=== PATIENT | female | born 1970 | race Caucasian/White ===

== ENCOUNTER 2018-12-01 14:26 | Inpatient (IN) | payer MEDICARE, MEDICAID ==
[~2018-12-01] VITALS: Ht 154.9 cm; Wt 111.1 kg
[2018-12-01] MEDS ORDERED: DIAZ10 PO (15:07)
[2018-12-01] MEDS ORDERED: ADV250 IH (15:07)
[2018-12-01] MEDS ORDERED: OMAL75SY SQ (15:07)
[2018-12-01] MEDS ORDERED: TIZA4TAB4 PO (15:07)
[2018-12-01] MEDS ORDERED: GABA-531 PO (15:07)
[2018-12-01] MEDS ORDERED: GABA-533 PO (15:07)
[2018-12-01] MEDS ORDERED: LEVO125 PO (15:15)
[2018-12-01 15:36] LABS: BASOPHILS % (AUTO) 0.7 % (0.0-2.0); EOSINOPHILS % (AUTO) 2.1 % (1.0-6.0); HEMATOCRIT 36.2 % (36-46); HEMOGLOBIN 12.3 g/dL (12.0-16.0); LYMPHOCYTES # (AUTO) 2.4 K/uL (1.0-4.8); LYMPHOCYTES % (AUTO) 25.8 % (22.0-44.0); MEAN CORPUSCULAR HEMOGLOBIN 30.6 pg (26.0-34.0); MEAN CORPUSCULAR HGB CONC 33.9 G/dL (31.0-37.0); MEAN CORPUSCULAR VOLUME 90 fL (80-100); MONOCYTES # (AUTO) 0.7 K/uL (0.1-1.0); MONOCYTES % (AUTO) 7.1 % (2.0-9.0); NEUTROPHILS % (AUTO) 64.3 % (40.0-70.0); PLATELET COUNT (AUTO) 262 K/uL (150-450); RED BLOOD CELL COUNT(AUTO) 4.01 MIL/uL (4.00-5.20)
[2018-12-01 15:57] LABS: ANION GAP 6 mmol/L (8-16); CALCIUM, TOTAL 8.8 mg/dL (8.8-10.5); CARBON DIOXIDE 26 mmol/L (22-29); CHLORIDE 105 mmol/L (98-107); CREATININE 0.83 mg/dL (0.60-1.30); GLOMERULAR FILTR. RATE CALC > 60 mL/min (>60); GLUCOSE,RANDOM 78 mg/dL (70-110); POTASSIUM 3.7 mmol/L (3.5-5.1); SODIUM SERUM 137 mmol/L (136-145); UREA NITROGEN, BLOOD 14 mg/dL (7-18)
[2018-12-01 16:03] LABS: ALANINE AMINOTRANSFERASE 23 U/L (12-78); ALBUMIN 3.3 g/dL (3.4-5.0); ALKALINE PHOSPHATASE 73 U/L (46-116); ASPARTATE AMINOTRANSFERASE 19 U/L (15-37); BILIRUBIN,TOTAL 0.3 mg/dL (0.1-1.0); TOTAL PROTEIN, SERUM 6.7 g/dL (6.4-8.2)
[2018-12-01 17:06] LABS: AMPHET/METH SCREEN,URINE NEGATIVE (NEGATIVE); BARBITURATE SCREEN, URINE NEGATIVE (NEGATIVE); BENZODIAZEPINES SCREEN,URINE POSITIVE (NEGATIVE); CANNABINOID SCREEN,URINE NEGATIVE (NEGATIVE); COCAINE SCREEN,URINE NEGATIVE (NEGATIVE); METHADONE SCREEN, URINE NEGATIVE (NEGATIVE); OPIATE SCREEN,URINE NEGATIVE (NEGATIVE)
[2018-12-01 17:09] LABS: PHENCYCLIDINE SCREEN,URINE NEGATIVE (NEGATIVE)
[2018-12-01] MEDS ORDERED: QUEtiapine FUMARATE 100 MG TABLET PO PRN (18:00)
[2018-12-01] MEDS ORDERED: ZOLPIDEM TARTRATE 10 MG TABLET PO PRN (18:00)
[2018-12-01] MEDS ORDERED: GuaiFENesin/D-METHORPHAN [SUGAR-FREE] 200-20MG/10 ML SYRUP UDCUP PO PRN (18:00)
[2018-12-01] MEDS ORDERED: LOPERAMIDE HCL 2 MG CAPSULE PO PRN (18:00)
[2018-12-01] MEDS ORDERED: HydrOXYzine PAMOATE 50 MG CAPSULE PO PRN (18:00)
[2018-12-01] MEDS ORDERED: MAG HYDROX/AL HYDROX/SIMETH ES 30 ML SUSPENSION UDCUP PO PRN (18:00)
[2018-12-01] MEDS ORDERED: DIAZEPAM 10 MG TABLET PO PRN (18:00)
[2018-12-01] MEDS ORDERED: TUBERCULIN, PURIFIED PROTEIN DERIVATIVE 5 TU/0.1 ML SYG ID ONE (18:00)
[2018-12-01] MEDS ORDERED: MAGNESIUM HYDROXIDE SUSPENSION 30 ML UDCUP PO PRN (18:00)
[2018-12-01 18:07] LABS: APPEARANCE,URINE CLEAR (CLEAR); BILIRUBIN,URINE NEGATIVE (NEGATIVE); GLUCOSE, URINE (UA) NEGATIVE (NEGATIVE); KETONES,URINE NEGATIVE (NEGATIVE); LEUKOCYTE ESTERASE ,URINE NEGATIVE (NEGATIVE); NITRATE,URINE NEGATIVE (NEGATIVE); OCCULT BLOOD,URINE LARGE (NEGATIVE); PROTEIN,URINE NEGATIVE (NEGATIVE); UROBILINOGEN,URINE 0.2 mg/dL (<=1.0)
[2018-12-01 18:18] LABS: WBC,URINE None Seen /HPF (0-5)
[2018-12-01 18:19] LABS: BACTERIA,URINE None Seen /HPF (None Seen); SQUAMOUS EPITHELIAL CELL,UR Few /LPF (None Seen)
[2018-12-01 18:26] LABS: HCG,QUANTITATIVE 1 mIU/mL (0-6)
[2018-12-01 19:45] VITALS: BP 114/78
[2018-12-01 20:36] VITALS: BP 114/47
[2018-12-01 20:45] VITALS: BP 120/76
[2018-12-01] MEDS ORDERED: PRAZOSIN HCL 1 MG CAPSULE PO SCH (21:00)
[2018-12-01] MEDS ORDERED: GABAPENTIN 400 MG CAPSULE PO SCH (21:00)
[2018-12-01] MEDS ORDERED: TraZODone HCL 50 MG TABLET PO SCH (21:00)
[2018-12-01] MEDS ORDERED: TiZANidine HCL 4 MG TABLET PO PRN (21:30)
[2018-12-01] MEDS ORDERED: ALBUTEROL SULFATE HFA 90 MCG/PUFF 8 GM INHALER IH PRN (22:00)
[2018-12-01] MEDS: THIAMINE HCL 100 MG TABLET PO SCH (22:07)
[2018-12-01] MEDS: LamoTRIgine 25 MG TABLET PO SCH (22:08)
[2018-12-02 02:00] VITALS: BP 124/60
[2018-12-02] MEDS: ACETAMINOPHEN 325 MG TABLET PO PRN (02:03)
[2018-12-02 06:33] LABS: BASOPHILS % (AUTO) 1.8 % (0.0-2.0); EOSINOPHILS % (AUTO) 3.2 % (1.0-6.0); HEMATOCRIT 35.2 % (36-46); LYMPHOCYTES # (AUTO) 2.4 K/uL (1.0-4.8); LYMPHOCYTES % (AUTO) 32.1 % (22.0-44.0); MEAN CORPUSCULAR HEMOGLOBIN 31.2 pg (26.0-34.0); MEAN CORPUSCULAR HGB CONC 34.1 G/dL (31.0-37.0); MEAN CORPUSCULAR VOLUME 92 fL (80-100); MONOCYTES # (AUTO) 0.5 K/uL (0.1-1.0); MONOCYTES % (AUTO) 6.7 % (2.0-9.0); NEUTROPHILS # (AUTO) 4.1 K/uL (1.8-7.7); NEUTROPHILS % (AUTO) 56.2 % (40.0-70.0); PLATELET COUNT (AUTO) 203 K/uL (150-450); RED BLOOD CELL COUNT(AUTO) 3.85 MIL/uL (4.00-5.20); RED CELL DISTRIBUTION WIDTH 13.1 % (11.5-14.5)
[2018-12-02] MEDS ORDERED: DIAZEPAM 10 MG TABLET PO PRN (07:00)
[2018-12-02] MEDS: LEVOTHYROXINE SODIUM 125 MCG TABLET PO SCH (07:00)
[2018-12-02 07:47] LABS: ALANINE AMINOTRANSFERASE 23 U/L (12-78); ALKALINE PHOSPHATASE 69 U/L (46-116); ANION GAP 8 mmol/L (8-16); ASPARTATE AMINOTRANSFERASE 23 U/L (15-37); BILIRUBIN,TOTAL 0.3 mg/dL (0.1-1.0); CALCIUM, TOTAL 8.5 mg/dL (8.8-10.5); CARBON DIOXIDE 26 mmol/L (22-29); CHLORIDE 105 mmol/L (98-107); CHOLESTEROL 165 mg/dL (131-200); FREE T4 (FREE THYROXINE) 0.95 ng/dL (0.76-1.46); GLOMERULAR FILTR. RATE CALC > 60 mL/min (>60); GLUCOSE,RANDOM 90 mg/dL (70-110); HDL CHOLESTEROL 41 mg/dL (40-60); LDL CHOL (CALC.) 86 mg/dL (0-130); POTASSIUM 4.2 mmol/L (3.5-5.1); SODIUM SERUM 139 mmol/L (136-145); THYROID STIMULATING HORMONE 5.57 uIU/mL (0.36-3.74); TOTAL PROTEIN, SERUM 6.5 g/dL (6.4-8.2); TRIGLYCERIDES 188 mg/dL (15-150); UREA NITROGEN, BLOOD 19 mg/dL (7-18)
[2018-12-02] MEDS ORDERED: FLUTICASONE/SALMETEROL 250 MCG-50 MCG/INH DISKUS INHALER [28] IH SCH (09:00)
[2018-12-02] MEDS ORDERED: BuPROPion HCL XL 150 MG ER TABLET PO SCH (09:00)
[2018-12-02] MEDS ORDERED: GABAPENTIN 300 MG CAPSULE PO SCH (09:00)
[2018-12-02] MEDS: FOLIC ACID 1 MG TABLET PO SCH (10:14)
[2018-12-02] MEDS: DIAZEPAM 10 MG TABLET PO SCH ×4 (10:14→20:38)
[2018-12-02] MEDS: THIAMINE HCL 100 MG TABLET PO SCH ×2 (10:14→16:36)
[2018-12-02] MEDS: MULTIVITAMINS WITH MINERALS, THERAPEUTIC TABLET PO SCH (10:15)
[2018-12-02 10:19] VITALS: BP 137/77
[2018-12-02] MEDS: GABAPENTIN 400 MG CAPSULE PO SCH ×2 (16:36→20:38)
[2018-12-02] MEDS: LamoTRIgine 25 MG TABLET PO SCH (20:37)
[2018-12-02] MEDS: MONTELUKAST SODIUM 10 MG TABLET PO SCH (20:37)
[2018-12-02] MEDS: PRAZOSIN HCL 2 MG CAPSULE PO SCH (20:37)
[2018-12-02] MEDS ORDERED: TraZODone HCL 100 MG TABLET PO SCH (21:00)
[2018-12-02 22:19] VITALS: BP 134/78
[2018-12-02 22:20] VITALS: BP 134/78
[2018-12-03] VITALS (7 sets, daily range): BP systolic 101–132; BP diastolic 52–83
[2018-12-03] MEDS: ACETAMINOPHEN 325 MG TABLET PO PRN ×2 (00:36→10:42)
[2018-12-03] MEDS: LEVOTHYROXINE SODIUM 125 MCG TABLET PO SCH (06:58)
[2018-12-03] MEDS ORDERED: DULoxetine HCL 20 MG CAPSULE PO SCH (09:00)
[2018-12-03] MEDS ORDERED: BuPROPion HCL XL 150 MG ER TABLET PO SCH (09:00)
[2018-12-03] MEDS: GABAPENTIN 400 MG CAPSULE PO SCH ×3 (09:06→17:46)
[2018-12-03] MEDS: FOLIC ACID 1 MG TABLET PO SCH (09:07)
[2018-12-03] MEDS: DIAZEPAM 10 MG TABLET PO SCH ×4 (09:07→20:57)
[2018-12-03] MEDS: MULTIVITAMINS WITH MINERALS, THERAPEUTIC TABLET PO SCH (09:07)
[2018-12-03] MEDS: THIAMINE HCL 100 MG TABLET PO SCH ×2 (09:07→17:46)
[2018-12-03] MEDS: MONTELUKAST SODIUM 10 MG TABLET PO SCH ×2 (09:07→20:56)
[2018-12-03] MEDS: FLUTICASONE/VILANTEROL 200-25 MCG/INH INHALER [14] IH SCH (09:08)
[2018-12-03] MEDS: PROMETHAZINE HCL 25 MG TABLET PO PRN (10:41)
[2018-12-03] MEDS ORDERED: TiZANidine HCL 4 MG TABLET PO PRN (13:00)
[2018-12-03] MEDS: TiZANidine HCL 4 MG TABLET PO SCH (20:55)
[2018-12-03] MEDS: LamoTRIgine 25 MG TABLET PO SCH (20:56)
[2018-12-03] MEDS: TraZODone HCL 100 MG TABLET PO SCH (20:56)
[2018-12-03] MEDS: PRAZOSIN HCL 2 MG CAPSULE PO SCH (20:56)
[2018-12-04] MEDS: LEVOTHYROXINE SODIUM 137 MCG TABLET PO SCH (06:56)
[2018-12-04 07:00] VITALS: BP 93/45
[2018-12-04] MEDS ORDERED: DIAZEPAM 5 MG TABLET PO PRN (07:00)
[2018-12-04 08:05] VITALS: BP 118/51
[2018-12-04] MEDS ORDERED: DULoxetine HCL 20 MG CAPSULE PO SCH (09:00)
[2018-12-04] MEDS ORDERED: GABAPENTIN 400 MG CAPSULE PO SCH (09:00)
[2018-12-04] MEDS: THIAMINE HCL 100 MG TABLET PO SCH ×2 (09:37→16:42)
[2018-12-04] MEDS: BuPROPion HCL XL 150 MG ER TABLET PO SCH (09:39)
[2018-12-04] MEDS: FOLIC ACID 1 MG TABLET PO SCH (09:39)
[2018-12-04] MEDS: MULTIVITAMINS WITH MINERALS, THERAPEUTIC TABLET PO SCH (09:39)
[2018-12-04] MEDS: DIAZEPAM 5 MG TABLET PO SCH ×4 (09:39→21:07)
[2018-12-04] MEDS: MONTELUKAST SODIUM 10 MG TABLET PO SCH ×2 (09:40→21:08)
[2018-12-04] MEDS: FLUTICASONE/VILANTEROL 200-25 MCG/INH INHALER [14] IH SCH (09:41)
[2018-12-04] MEDS: DULoxetine HCL 30 MG CAPSULE PO SCH (09:47)
[2018-12-04] MEDS: GABAPENTIN 100 MG CAPSULE PO SCH ×4 (09:49→16:42)
[2018-12-04] MEDS: GABAPENTIN 300 MG CAPSULE PO SCH ×4 (09:49→16:41)
[2018-12-04 17:00] VITALS: BP 123/78
[2018-12-04] MEDS: TiZANidine HCL 4 MG TABLET PO SCH (21:06)
[2018-12-04] MEDS: TraZODone HCL 100 MG TABLET PO SCH (21:07)
[2018-12-04] MEDS: PRAZOSIN HCL 2 MG CAPSULE PO SCH (21:08)
[2018-12-04] MEDS: LamoTRIgine 25 MG TABLET PO SCH (21:09)
[2018-12-05] MEDS: ACETAMINOPHEN 325 MG TABLET PO PRN (05:57)
[2018-12-05 05:59] VITALS: BP 105/61
[2018-12-05 06:00] VITALS: BP 105/61
[2018-12-05] MEDS: LEVOTHYROXINE SODIUM 137 MCG TABLET PO SCH (06:18)
[2018-12-05] MEDS ORDERED: DIAZEPAM 5 MG TABLET PO PRN (07:00)
[2018-12-05 08:05] VITALS: BP 115/73
[2018-12-05] MEDS: FOLIC ACID 1 MG TABLET PO SCH (09:55)
[2018-12-05] MEDS: DULoxetine HCL 30 MG CAPSULE PO SCH (09:55)
[2018-12-05] MEDS: GABAPENTIN 300 MG CAPSULE PO SCH ×3 (09:56→16:22)
[2018-12-05] MEDS: THIAMINE HCL 100 MG TABLET PO SCH ×2 (09:56→16:22)
[2018-12-05] MEDS: GABAPENTIN 100 MG CAPSULE PO SCH ×3 (09:56→16:22)
[2018-12-05] MEDS: MONTELUKAST SODIUM 10 MG TABLET PO SCH ×2 (09:56→22:25)
[2018-12-05] MEDS: MULTIVITAMINS WITH MINERALS, THERAPEUTIC TABLET PO SCH (09:57)
[2018-12-05] MEDS: BuPROPion HCL XL 150 MG ER TABLET PO SCH (09:57)
[2018-12-05] MEDS: FLUTICASONE/VILANTEROL 200-25 MCG/INH INHALER [14] IH SCH (09:59)
[2018-12-05] MEDS: PROMETHAZINE HCL 25 MG TABLET PO PRN (17:06)
[2018-12-05 19:00] VITALS: BP 131/77
[2018-12-05 19:01] VITALS: BP 131/77
[2018-12-05] MEDS: LamoTRIgine 25 MG TABLET PO SCH (22:25)
[2018-12-05] MEDS: TraZODone HCL 100 MG TABLET PO SCH (22:25)
[2018-12-05] MEDS: PRAZOSIN HCL 2 MG CAPSULE PO SCH (22:25)
[2018-12-05] MEDS: TiZANidine HCL 4 MG TABLET PO SCH (22:26)
[2018-12-06 06:15] VITALS: BP 102/65
[2018-12-06] MEDS: LEVOTHYROXINE SODIUM 137 MCG TABLET PO SCH (06:17)
[2018-12-06 08:05] VITALS: BP 95/56
[2018-12-06] MEDS: THIAMINE HCL 100 MG TABLET PO SCH ×2 (10:18→17:41)
[2018-12-06] MEDS: MULTIVITAMINS WITH MINERALS, THERAPEUTIC TABLET PO SCH (10:18)
[2018-12-06] MEDS: DULoxetine HCL 30 MG CAPSULE PO SCH (10:18)
[2018-12-06] MEDS: GABAPENTIN 300 MG CAPSULE PO SCH ×3 (10:19→17:41)
[2018-12-06] MEDS: MONTELUKAST SODIUM 10 MG TABLET PO SCH ×2 (10:19→21:12)
[2018-12-06] MEDS: BuPROPion HCL XL 150 MG ER TABLET PO SCH (10:19)
[2018-12-06] MEDS: GABAPENTIN 100 MG CAPSULE PO SCH ×3 (10:19→17:41)
[2018-12-06] MEDS: FOLIC ACID 1 MG TABLET PO SCH (10:20)
[2018-12-06] MEDS: FLUTICASONE/VILANTEROL 200-25 MCG/INH INHALER [14] IH SCH (10:20)
[2018-12-06] MEDS: ACETAMINOPHEN 325 MG TABLET PO PRN (10:25)
[2018-12-06 13:38] VITALS: BP 95/56
[2018-12-06 17:32] VITALS: BP 110/62
[2018-12-06] MEDS: LamoTRIgine 25 MG TABLET PO SCH (21:10)
[2018-12-06] MEDS: TraZODone HCL 100 MG TABLET PO SCH (21:10)
[2018-12-06] MEDS: PRAZOSIN HCL 2 MG CAPSULE PO SCH (21:13)
[2018-12-06] MEDS: TiZANidine HCL 4 MG TABLET PO SCH (21:13)
[2018-12-07] MEDS: LEVOTHYROXINE SODIUM 137 MCG TABLET PO SCH (06:09)
[2018-12-07 07:24] VITALS: BP 104/50
[2018-12-07 08:05] VITALS: BP 113/70
[2018-12-07] MEDS: MONTELUKAST SODIUM 10 MG TABLET PO SCH (08:37)
[2018-12-07] MEDS: DULoxetine HCL 30 MG CAPSULE PO SCH (08:37)
[2018-12-07] MEDS: FOLIC ACID 1 MG TABLET PO SCH (08:37)
[2018-12-07] MEDS: GABAPENTIN 100 MG CAPSULE PO SCH ×3 (08:37→17:00)
[2018-12-07] MEDS: THIAMINE HCL 100 MG TABLET PO SCH ×2 (08:37→17:00)
[2018-12-07] MEDS: GABAPENTIN 300 MG CAPSULE PO SCH ×3 (08:37→17:01)
[2018-12-07] MEDS: FLUTICASONE/VILANTEROL 200-25 MCG/INH INHALER [14] IH SCH (08:38)
[2018-12-07] MEDS: MULTIVITAMINS WITH MINERALS, THERAPEUTIC TABLET PO SCH (08:38)
[2018-12-07] MEDS ORDERED: BuPROPion HCL XL 150 MG ER TABLET PO SCH (09:00)
[2018-12-07] MEDS ORDERED: BUPR-47 PO (16:50)
[2018-12-07] MEDS ORDERED: GABA-529 PO (16:50)
[2018-12-07] MEDS ORDERED: GABA-531 PO (16:50)
[2018-12-07] MEDS ORDERED: DULO30CA2 PO (16:50)
[2018-12-07] MEDS ORDERED: TRAZ-220 PO (16:50)
[2018-12-07] MEDS ORDERED: PRAZ2 PO (16:50)
[2018-12-07] MEDS ORDERED: LAMO25 PO (16:50)
[2018-12-07] MEDS ORDERED: MONT10TA21 PO ×2 (17:57)
[2018-12-07] MEDS ORDERED: TIZA4TAB4 PO (17:57)
[2018-12-07] MEDS ORDERED: LEVO137T24 PO (17:58)
[2018-12-07] MEDS ORDERED: FOLI1 PO (17:59)
[2018-12-07] MEDS ORDERED: MULT-1239 PO (17:59)
[2018-12-07] MEDS ORDERED: FLUT1BLS IH (17:59)
[2018-12-07] MEDS ORDERED: THIA100T67 PO (18:00)
[2018-12-07] MEDS ORDERED: ALBUTEROL SULFATE 2.5 MG/0.5 ML NEB SOLUTION NEB SCH (19:00)
[2018-12-07] MEDS ORDERED: IPRATROPIUM BROMIDE 0.5 MG/2.5 ML NEB SOLUTION NEB SCH (19:00)
== END 2018-12-07 19:35 | disposition home or self-care (01) | DRG 885 ==
LOC: EMS 14:28 → 3EI 19:26
PROVIDERS: ADMIT Psychiatry & Neurology Psychiatry; ATTEND Psychiatry & Neurology Psychiatry
DX: F33.2 Major depressive disorder, recurrent severe without psychotic features (principal); G93.40 Encephalopathy, unspecified; F41.9 Anxiety disorder, unspecified; E89.0 Postprocedural hypothyroidism; G89.4 Chronic pain syndrome; F50.9 Eating disorder, unspecified; G47.00 Insomnia, unspecified; G47.33 Obstructive sleep apnea (adult) (pediatric); J45.909 Unspecified asthma, uncomplicated; K21.9 Gastro-esophageal reflux disease without esophagitis; Z65.3 Problems related to other legal circumstances; Z79.51 Long term (current) use of inhaled steroids; Z79.899 Other long term (current) drug therapy; Z82.49 Family history of ischemic heart disease and other diseases of the circulatory system; Z85.850 Personal history of malignant neoplasm of thyroid; M54.9 Dorsalgia, unspecified; T50.995A Adverse effect of other drugs, medicaments and biological substances, initial encounter; Y92.89 Other specified places as the place of occurrence of the external cause; Z91.19 Patient's noncompliance with other medical treatment and regimen
CPT/HCPCS: 83036; 84436; 84439; 84443; 84481; 86592; 93005; 94660; 97116; 97162; 97166; 97535; G0480; J3535